=== PATIENT | female | born 1990 | race American Indian/Alaskan Native ===

== ENCOUNTER 2016-07-28 19:39 | Inpatient (IN) | payer MEDICAID ==
[2016-07-28] MEDS ORDERED: Sodium Chloride 0.9% 10 ML Syringe FLUSH PRN (19:48)
[2016-07-28] MEDS ORDERED: Sodium Chloride 0.9% 1,000 ML IV SCH ×2 (20:00→22:30)
[2016-07-28] MEDS ORDERED: LORazepam 2 MG/ML MDV ONE (20:03)
[2016-07-28] MEDS ORDERED: LORazepam 2 MG/ML MDV IVPUSH ONE (20:08)
[2016-07-28] MEDS ORDERED: Acetaminophen 325 MG Tab PO ONE (21:12)
[2016-07-28] MEDS ORDERED: HYDROmorphone 0.5 MG/0.5 ML Syringe IVPUSH ONE (22:04)
[2016-07-28] MEDS ORDERED: levETIRAcetam 500 MG in Sodium Chloride 0.9% 100 ML IV ONE (22:05)
--- NOTE | 2016-07-29 00:04 | EDM.PDOC ---
[id number] Complaint: [facility] Time Seen by Provider: 07/28/16 19:45 Source of Information: Reports: Patient, EMS Notes Reviewed, Family History Limitations: Reports: No Limitations - History of Present Illness INITIAL COMMENTS - FREE TEXT/NARRATIVE: pt had a seizure early this am and she was taken to hosp and she had a cat scan of the head that was neg. Prior to this seizure she had 2 others several mointhes ago. She talked about a headache and was found to have a fever of 38. She did not have alot of other symptoms other than the fever. She has been in the [facility] alot but there was no known tick exposure. Onset: Today Duration: Hour(s):, Other (pt had 2 seizures today. ) Location: Reports: Generalized Associated Symptoms: Reports: Fever/Chills, Headaches, Seizure, Other ( 2 seizures) denies Pain Score (Numeric/FACES): 0 - Related Data Allergies Allergy/AdvReac Type Severity Reaction Status Date / Time No Known Allergies Allergy Verified 07/28/16 19:43 Home Meds: Home Meds Amoxicillin/Potassium Clav [Augmentin 875-125 Tablet] 1 each PO BID #14 tablet 07/29/16 [Rx] levETIRAcetam [Keppra] 500 mg PO BID #60 tablet 07/29/16 [Rx] Past Medical History Neurological History: Reports: Seizure Dermatologic History: Reports: Other (See Below) Other Dermatologic History: cyst removal from breast Social & Family History - Tobacco Use Smoking Status *Q: Current Every Day Smoker Years of Tobacco use: 10 Packs/Tins Daily: 0.5 - Caffeine Use Caffeine Use: Reports: Soda - Alcohol Use Days Per Week of Alcohol Use: 2 Number of Drinks Per Day: 3 Total Drinks Per Week: 6 - Recreational Drug Use Recreational Drug Use: Yes Drug Use in Last 12 Months: Yes Recreational Drug Type: Reports: Marijuana/Hashish Recreational Drug Use Frequency: Weekly ED ROS GENERAL - Review of Systems Review Of Systems: See Below Constitutional: Reports: Fever, Chills, Malaise HEENT: Reports: No Symptoms Respiratory: Reports: No Symptoms Cardiovascular: Reports: No Symptoms Endocrine: Reports: No Symptoms GI/Abdominal: Reports: No Symptoms : Reports: No Symptoms Musculoskeletal: Reports: No Symptoms Skin: Reports: No Symptoms Neurological: Reports: Seizure Psychiatric: Reports: No Symptoms - Physical Exam Exam: See Below Text/Narrative:: Pt arrived after having a second seizure today. She had a temp of 38. She had not definite symptoms to explain the fever. Exam Limited By: Other (pt seemed very spacey when she first arrived.) General Appearance: Alert, Anxious Ears: Normal External Exam Nose: Normal Inspection Throat/Mouth: Normal Inspection Head Exam: Atraumatic Neck: Normal Inspection Respiratory/Chest: No Respiratory Distress Cardiovascular: Regular Rate, Rhythm, Tachycardia GI/Abdominal: Soft, Non-Tender (Female) Exam: Deferred Rectal (Female) Exam: Deferred Neuro Exam (Abbreviated): Alert, Inattentive, Other (pt was post ictal and seemed very spacey at first. ) Back Exam: Normal Inspection Extremities: Normal Inspection Psychiatric: Depressed Mood Course - Vital Signs Last Recorded V/S: Last Vital Signs Temp 36.9 C 07/29/16 12:01 Pulse 78 07/28/16 23:42 Resp 16 07/29/16 12:01 BP 128/87 07/29/16 12:01 Pulse Ox 97 07/29/16 12:01 - Orders/Labs/Meds Labs: Laboratory Tests 07/28/16 07/28/16 07/28/16 Range/Units 19:48 19:48 20:28 WBC 19.8 H (4.5-11.0) K/uL RBC 4.56 (3.30-5.50) M/uL Hgb 12.3 (12.0-15.0) g/dL Hct 36.6 (36.0-48.0) % MCV 80 (80-98) fL MCH 27 (27-31) pg MCHC 34 (32-36) % Plt Count 357 (150-400) K/uL Neut % (Auto) 90 H (36-66) % Lymph % (Auto) 6 L (24-44) % Blair % (Auto) 4 (2-6) % Eos % (Auto) 0 L (2-4) % Baso % (Auto) 0 (0-1) % Sodium 134 L (140-148) mmol/L Potassium 3.8 (3.6-5.2) mmol/L Chloride 100 (100-108) mmol/L Carbon Dioxide 23 (21-32) mmol/L Anion Gap 14.8 H (5.0-14.0) mmol/L BUN 8 (7-18) mg/dL Creatinine 0.8 (0.6-1.0) mg/dL Est Cr Clr Drug Dosing TNP Estimated GFR (MDRD) > 60 (>60) Glucose 121 H (74-106) mg/dL Lactic Acid (0.4-2.0) mmol/L Calcium 8.4 L (8.5-10.1) mg/dL Total Bilirubin 0.3 (0.2-1.0) mg/dL AST 19 (15-37) U/L ALT 29 (12-78) U/L Alkaline Phosphatase 73 (46-116) U/L C-Reactive Protein 0.37 H (0.0-0.3) mg/dL Total Protein 7.4 (6.4-8.2) g/dL Albumin 3.5 (3.4-5.0) g/dL Globulin 3.9 H (2.3-3.5) g/dL Albumin/Globulin Ratio 0.9 L (1.2-2.2) Urine Color Urine Appearance Urine pH (4.5-8.0) Ur Specific [place] (1.008-1.030) Urine Protein (NEGATIVE) mg/dL Urine Glucose (UA) (NEGATIVE) mg/dL Urine Ketones (NEGATIVE) mg/dL Urine Occult Blood (NEGATIVE) Urine Nitrite (NEGATIVE) Urine Bilirubin (NEGATIVE) Urine Urobilinogen (NORMAL) mg/dL Ur Leukocyte Esterase (NEGATIVE) Urine RBC (0-5) Urine WBC (0-5) Ur Epithelial Cells Amorphous Sediment Urine Bacteria Urine Mucus Urine Other Urinalysis Comment Urine HCG, Qual CSF Tube Number CSF Volume mls CSF Appearance (CLEAR) CSF Color (COLORLESS) CSF WBC (0-5) /ul CSF RBC (0-0) /ul CSF Mononuclear Cells (54-100) % CSF Polymorphonuclear (0-7) % CSF Diff Comment CSF Chloride CSF Glucose (40-70) mg/dL Urine Opiates Screen (NEGATIVE) Ur Oxycodone Screen (NEGATIVE) Urine Methadone Screen (NEGATIVE) Ur Propoxyphene Screen (NEGATIVE) Ur Barbiturates Screen (NEGATIVE) Ur Tricyclics Screen (NEGATIVE) Ur Phencyclidine Scrn (NEGATIVE) Ur Amphetamine Screen (NEGATIVE) U Methamphetamines Scrn (NEGATIVE) Urine MDMA Screen (NEGATIVE) U Benzodiazepines Scrn (NEGATIVE) U Cocaine Metab Screen (NEGATIVE) U Marijuana (THC) Screen (NEGATIVE) 07/28/16 07/28/16 07/28/16 Range/Units 20:53 21:08 21:08 WBC (4.5-11.0) K/uL RBC (3.30-5.50) M/uL Hgb (12.0-15.0) g/dL Hct (36.0-48.0) % MCV (80-98) fL MCH (27-31) pg MCHC (32-36) % Plt Count (150-400) K/uL Neut % (Auto) (36-66) % Lymph % (Auto) (24-44) % Blair % (Auto) (2-6) % Eos % (Auto) (2-4) % Baso % (Auto) (0-1) % Sodium (140-148) mmol/L Potassium (3.6-5.2) mmol/L Chloride (100-108) mmol/L Carbon Dioxide (21-32) mmol/L Anion Gap (5.0-14.0) mmol/L BUN (7-18) mg/dL Creatinine (0.6-1.0) mg/dL Est Cr Clr Drug Dosing Estimated GFR (MDRD) (>60) Glucose (74-106) mg/dL Lactic Acid 3.3 H (0.4-2.0) mmol/L Calcium (8.5-10.1) mg/dL Total Bilirubin (0.2-1.0) mg/dL AST (15-37) U/L ALT (12-78) U/L Alkaline Phosphatase (46-116) U/L C-Reactive Protein (0.0-0.3) mg/dL Total Protein (6.4-8.2) g/dL Albumin (3.4-5.0) g/dL Globulin (2.3-3.5) g/dL Albumin/Globulin Ratio (1.2-2.2) Urine Color Yellow Urine Appearance Cloudy Urine pH 6.0 (4.5-8.0) Ur Specific [place] 1.015 (1.008-1.030) Urine Protein Negative (NEGATIVE) mg/dL Urine Glucose (UA) Normal (NEGATIVE) mg/dL Urine Ketones 15 H (NEGATIVE) mg/dL Urine Occult Blood Negative (NEGATIVE) Urine Nitrite Negative (NEGATIVE) Urine Bilirubin Negative (NEGATIVE) Urine Urobilinogen Normal (NORMAL) mg/dL Ur Leukocyte Esterase Small (NEGATIVE) Urine RBC 0-5 (0-5) Urine WBC 5-10 H (0-5) Ur Epithelial Cells Few Amorphous Sediment Few Urine Bacteria Moderate Urine Mucus Few Urine Other See note Urinalysis Comment Clue cells seen Urine HCG, Qual CSF Tube Number CSF Volume mls CSF Appearance (CLEAR) CSF Color (COLORLESS) CSF WBC (0-5) /ul CSF RBC (0-0) /ul CSF Mononuclear Cells (54-100) % CSF Polymorphonuclear (0-7) % CSF Diff Comment CSF Chloride CSF Glucose (40-70) mg/dL Urine Opiates Screen Negative (NEGATIVE) Ur Oxycodone Screen Negative (NEGATIVE) Urine Methadone Screen Negative (NEGATIVE) Ur Propoxyphene Screen Negative (NEGATIVE) Ur Barbiturates Screen Negative (NEGATIVE) Ur Tricyclics Screen Negative (NEGATIVE) Ur Phencyclidine Scrn Negative (NEGATIVE) Ur Amphetamine Screen Negative (NEGATIVE) U Methamphetamines Scrn Negative (NEGATIVE) Urine MDMA Screen Negative (NEGATIVE) U Benzodiazepines Scrn Negative (NEGATIVE) U Cocaine Metab Screen Negative (NEGATIVE) U Marijuana (THC) Screen Positive H (NEGATIVE) 07/28/16 07/28/16 07/28/16 Range/Units 21:08 23:14 23:14 WBC (4.5-11.0) K/uL RBC (3.30-5.50) M/uL Hgb (12.0-15.0) g/dL Hct (36.0-48.0) % MCV (80-98) fL MCH (27-31) pg MCHC (32-36) % Plt Count (150-400) K/uL Neut % (Auto) (36-66) % Lymph % (Auto) (24-44) % Blair % (Auto) (2-6) % Eos % (Auto) (2-4) % Baso % (Auto) (0-1) % Sodium (140-148) mmol/L Potassium (3.6-5.2) mmol/L Chloride (100-108) mmol/L Carbon Dioxide (21-32) mmol/L Anion Gap (5.0-14.0) mmol/L BUN (7-18) mg/dL Creatinine (0.6-1.0) mg/dL Est Cr Clr Drug Dosing Estimated GFR (MDRD) (>60) Glucose (74-106) mg/dL Lactic Acid (0.4-2.0) mmol/L Calcium (8.5-10.1) mg/dL Total Bilirubin (0.2-1.0) mg/dL AST (15-37) U/L ALT (12-78) U/L Alkaline Phosphatase (46-116) U/L C-Reactive Protein (0.0-0.3) mg/dL Total Protein (6.4-8.2) g/dL Albumin (3.4-5.0) g/dL Globulin (2.3-3.5) g/dL Albumin/Globulin Ratio (1.2-2.2) Urine Color Urine Appearance Urine pH (4.5-8.0) Ur Specific [place] (1.008-1.030) Urine Protein (NEGATIVE) mg/dL Urine Glucose (UA) (NEGATIVE) mg/dL Urine Ketones (NEGATIVE) mg/dL Urine Occult Blood (NEGATIVE) Urine Nitrite (NEGATIVE) Urine Bilirubin (NEGATIVE) Urine Urobilinogen (NORMAL) mg/dL Ur Leukocyte Esterase (NEGATIVE) Urine RBC (0-5) Urine WBC (0-5) Ur Epithelial Cells Amorphous Sediment Urine Bacteria Urine Mucus Urine Other Urinalysis Comment Urine HCG, Qual Negative CSF Tube Number 4 CSF Volume 1 mls CSF Appearance Clear (CLEAR) CSF Color Colorless (COLORLESS) CSF WBC 0 (0-5) /ul CSF RBC 0 (0-0) /ul CSF Mononuclear Cells 0 L (54-100) % CSF Polymorphonuclear 0 (0-7) % CSF Diff Comment See note CSF Chloride Cancelled CSF Glucose 67 (40-70) mg/dL Urine Opiates Screen (NEGATIVE) Ur Oxycodone Screen (NEGATIVE) Urine Methadone Screen (NEGATIVE) Ur Propoxyphene Screen (NEGATIVE) Ur Barbiturates Screen (NEGATIVE) Ur Tricyclics Screen (NEGATIVE) Ur Phencyclidine Scrn (NEGATIVE) Ur Amphetamine Screen (NEGATIVE) U Methamphetamines Scrn (NEGATIVE) Urine MDMA Screen (NEGATIVE) U Benzodiazepines Scrn (NEGATIVE) U Cocaine Metab Screen (NEGATIVE) U Marijuana (THC) Screen (NEGATIVE) Meds: Medications Discontinued Medications Generic Name Dose Route Start Last Admin Trade Name Freq PRN Reason Stop Dose Admin Acetaminophen 650 mg 07/28/16 21:12 07/28/16 21:26 Tylenol PO 07/28/16 21:13 650 mg NOW ONE Administration Acetaminophen 650 mg 07/29/16 01:08 Tylenol PO Q4H PRN Pain/Fever Docusate Sodium 100 mg 07/29/16 00:26 Colace PO BID PRN Constipation Gadoteridol 20 ml 07/29/16 11:00 07/29/16 11:51 Prohance IV 07/29/16 11:01 20 ml . DIRECTED ERIC Administration Hydromorphone HCl 0.5 mg 07/28/16 22:04 07/28/16 22:25 Dilaudid IVPUSH 07/28/16 22:05 0.5 mg ONETIME ONE Administration Hydromorphone HCl 0.5 mg 07/29/16 11:16 07/29/16 11:22 Dilaudid IVPUSH 07/29/16 11:17 0.5 mg ONETIME ONE Administration Sodium Chloride 1,000 mls @ 500 mls/hr 07/28/16 20:00 07/28/16 20:10 Normal Saline IV 500 mls/hr ASDIRECTED ERIC Administration Levetiracetam 500 mg/ Sodium 105 mls @ 400 mls/hr 07/28/16 22:05 07/28/16 22: 25 Chloride IV 07/28/16 22:19 400 mls/hr ONETIME ONE Administration Sodium Chloride 1,000 mls @ 200 mls/hr 07/28/16 22:30 07/28/16 22:24 Normal Saline IV 200 mls/hr ASDIRECTED ERIC Administration Piperacillin Sod/Tazobactam 50 mls @ 100 mls/hr 07/29/16 00:26 07/29/16 01:42 Sod 3.375 gm/ Sodium Chloride IV 100 mls/hr Q6H ERIC Administration Sodium Chloride 1,000 mls @ 125 mls/hr 07/29/16 00:26 Normal Saline IV ASDIRECTED ERIC Sodium Chloride 1,000 mls @ 125 mls/hr 07/29/16 00:26 07/29/16 05:22 Normal Saline IV 125 mls/hr ASDIRECTED ERIC Administration Levetiracetam 500 mg/ Sodium 105 mls @ 400 mls/hr 07/29/16 10:00 07/29/16 09: 40 Chloride IV 400 mls/hr Q12H ERIC Administration Sodium Chloride Confirm 07/29/16 01:30 07/29/16 01:42 Normal Saline Administered 07/29/16 01:31 Not Given Dose 50 mls @ as directed .ROUTE .STK-MED ONE Piperacillin/Tazobactam/ 50 mls @ 100 mls/hr 07/29/16 08:00 07/29/16 08:11 Dextrose 3.375 gm/ Premix IV 100 mls/hr Q6H ERIC Administration Ibuprofen 600 mg 07/29/16 00:26 Motrin PO Q6H PRN Pain/Fever Lorazepam Confirm 07/28/16 20:03 07/28/16 20:09 Ativan Administered 07/28/16 20:04 Not Given Dose 2 mg .ROUTE .STK-MED ONE Lorazepam 0.5 mg 07/28/16 20:08 07/28/16 20:10 Ativan IVPUSH 07/28/16 20:09 0.5 mg ONETIME ONE Administration Lorazepam 1 mg 07/29/16 00:26 Ativan IV Q6H PRN Nausea/Vomiting Lorazepam 1 mg 07/29/16 00:26 07/29/16 10:50 Ativan IVPUSH 1 mg Q4H PRN Administration Agitation Ondansetron HCl 4 mg 07/29/16 00:26 Zofran IV Q4H PRN Nausea/Vomiting Ondansetron HCl 4 mg 07/29/16 00:26 07/29/16 01:21 Zofran Odt PO 07/29/16 00:27 Not Given ONETIME ONE Oxycodone HCl 5 mg 07/29/16 00:26 Oxycodone PO Q4H PRN Pain (moderate 4-6) Pantoprazole Sodium 40 mg 07/29/16 08:00 07/29/16 08:08 Protonix Iv IV 07/29/16 08:01 40 mg ONETIME ONE Administration Potassium Chloride 40 meq 07/29/16 09:00 07/29/16 09:11 Klor-Con M20 PO 07/29/16 09:01 40 meq ONETIME ONE Administration Promethazine HCl 25 mg 07/29/16 00:26 Phenergan PO Q6H PRN Nausea able to take PO Sodium Chloride 10 ml 07/28/16 19:48 Saline Flush FLUSH ASDIRECTED PRN Keep Vein Open Zolpidem Tartrate 5 mg 07/29/16 00:26 Ambien PO BEDTIME PRN Sleep - Re-Assessments/Exams Free Text/Narrative Re-Assessment/Exam: 07/29/16 00:07 pt had a cat scan of the head earlier today that was neg. Her wbc was 20,000. Her urine was questional interms of infection. Her chest xray did not show a definite infection. Her urine was cultured and she had blood cultures. Because of the seizures and the fever a spinal tap was done which did not show cells. A culture is pending on that. She was given Keppa 500mg iv. Her temp was brought down with tylenol. Departure - Departure Time of Disposition: 00:10 Disposition: Admitted As Inpatient 64 Condition: fair Clinical Impression: UTI (urinary tract infection), Fever and chills, Seizure disorder - Discharge Information
[2016-07-29] MEDS ORDERED: Docusate Sodium 100 MG Cap PO PRN (00:26)
[2016-07-29] MEDS ORDERED: Sodium Chloride 0.9% 1,000 ML IV SCH ×2 (00:26)
[2016-07-29] MEDS ORDERED: Zolpidem 5 MG Tab PO PRN (00:26)
[2016-07-29] MEDS ORDERED: oxyCODONE 5 MG Tab PO PRN (00:26)
[2016-07-29] MEDS ORDERED: LORazepam 2 MG/ML MDV IVPUSH PRN (00:26)
[2016-07-29] MEDS ORDERED: Pantoprazole 40 MG Vial IV SCH (00:26)
[2016-07-29] MEDS ORDERED: LORazepam 2 MG/ML MDV IV PRN (00:26)
[2016-07-29] MEDS ORDERED: Ondansetron 4 MG Tab.DIS PO ONE (00:26)
[2016-07-29] MEDS ORDERED: Promethazine 25 MG Tab PO PRN (00:26)
[2016-07-29] MEDS ORDERED: Piperacillin/Tazobactam 3.375 GM in Sodium Chloride 0.9% 50 ML IV SCH (00:26)
[2016-07-29] MEDS ORDERED: Ibuprofen 600 MG Tab PO PRN (00:26)
[2016-07-29] MEDS ORDERED: Ondansetron 4 MG/2 ML SDV IV PRN (00:26)
[2016-07-29] MEDS ORDERED: Acetaminophen Soln 650 MG/20.3 ML UD Cup PO PRN (01:08)
[2016-07-29] MEDS ORDERED: Sodium Chloride 0.9% 50 ML ONE (01:30)
--- NOTE | 2016-07-29 02:42 | ANES ---
DATE OF SERVICE: 07/28/2016 INDICATIONS: Martha is a 25-year-old female patient in our emergency room, was requested by Dr. Aldridge to assess her for lumbar puncture, #[id number]. Please refer to Dr. Aldridge's note for diagnosis. I reviewed her history and found no contraindications to lumbar puncture. I discussed with her the risks of the procedure and benefits as well. She was okay to proceed and consent was received. DESCRIPTION OF PROCEDURE: I had her seated at the edge of the bed. Betadine prep x3 to the lumbar region. Sterile drape was placed, 1% lidocaine skin wheal as well as deep at the L4- L5 region. Introducer needle was placed and a 25-gauge Pencan needle was placed to positive CSF results. I collected CSF in 4 different containers provided by the lumbar puncture tray, initially it was noted pink tinged bloody tinged in the first vial; second, third, and forth were all clear nice looking CSF. No cloudiness was noted at that time. I did not assess a pressure at this time due to the fact of difficulty placement and the possibility of dislodgement, although it was noted it took quite some time to retrieve CSF through the 25-gauge, so I do not believe that it was very high at this point. Upon completion, I removed the needle and removed the drape, washed her back and placed a Band-Aid over the injection site, and then placed her in a supine position. They are continuing to give IV fluids at this time. She tolerated the procedure quite well. Please refer to nurse's notes for vital signs and neuro status, which are unchanged. I reported my findings to the nurse as well as Dr. Aldridge. The patient tolerated the procedure quite well. Donn Al CRNA /[id number]
--- NOTE | 2016-07-29 07:25 | PCM.HP ---
H&P History of Present Illness - General Date of Service: 07/28/16 Admit Problem/Dx: Admission Diagnosis/Problem Admission Diagnosis/Problem Seizure Source of Information: EMS, Family History Limitations: Reports: Other (lethargic) - History of Present Illness Initial Comments - Free Text/Narative: - General Chief Complaint: Neuro Symptoms/Deficits Stated Complaint: MED [facility] Time Seen by Provider: 07/28/16 19:45 Source of Information: Reports: Patient, EMS Notes Reviewed, Family History Limitations: Reports: No Limitations - History of Present Illness: pt had a seizure early this am and she was taken to [facility] (formerly [facility] She had a cat scan of the head that was negative. Lab WBC 12,000. left AMA. While at home she had another seizure lasting about 2 minutes, confused and lethargic after seizure, family called for EMS transport. Prior to this seizure, she had 2 others several months ago. She talked about a headache and was found to have a fever of 38. She did not have other symptoms other than the fever. She has been in the [place] a lot but there was no known tick exposure. Onset: Today Duration: Hour(s):, Other (pt had 2 seizures today. ) Location: Reports: Generalized Associated Symptoms: Reports: Fever/Chills, Headaches, Seizure, Other ( 2 seizures) 07/29/16 00:[address] earlier today that was neg. labs at [facility] wbc was 20,000. Her urine was questional for infection. Her chest xray did not show a definite infection. Her urine was cultured and she had blood cultures. Because of the seizures and fever a spinal tap was done which did not showcells. A culture is pending on that. She was given Keppa 500mg iv. Her temp was brought down with tylenol. will plan to admit to ICU med-overflow for further evaluation. - Onset of Symptoms: Reports: Today, Sudden Duration of Symptoms: Reports: Hour(s): Location: Reports: Generalized Improves with: Reports: None Worsens with: Reports: None Associated Symptoms: Reports: Confusion, Seizure, Other (lethargic post seizure) - Related Data Allergies/Adverse Reactions: Allergies Allergy/AdvReac Type Severity Reaction Status Date / Time No Known Allergies Allergy Verified 07/28/16 19:43 Home Medications: Home Meds NK [No Known Home Meds] 07/28/16 [History] Past Medical History Neurological History: Reports: Seizure Dermatologic History: Reports: Other (See Below) Other Dermatologic History: cyst removal from breast Social & Family History - Family History Family Medical History: Noncontributory - Tobacco Use Smoking Status *Q: Current Every Day Smoker Years of Tobacco use: 10 Packs/Tins Daily: 0.5 - Caffeine Use Caffeine Use: Reports: Soda - Alcohol Use Days Per Week of Alcohol Use: 2 Number of Drinks Per Day: 3 Total Drinks Per Week: 6 - Recreational Drug Use Recreational Drug Use: Yes Drug Use in Last 12 Months: Yes Recreational Drug Type: Reports: Marijuana/Hashish Recreational Drug Use Frequency: Weekly - Living Situation & Occupation Living situation: Reports: Single, with Family (lives with Parents, no children. ) H&P Review of Systems - Review of Systems: Review Of Systems: Unable To Obtain (reports given by Father and Mother.) General: Reports: Fever HEENT: Reports: No Symptoms Pulmonary: Reports: No Symptoms Cardiovascular: Reports: No Symptoms Gastrointestinal: Reports: No Symptoms Genitourinary: Reports: No Symptoms Musculoskeletal: Reports: No Symptoms Skin: Reports: No Symptoms Psychiatric: Reports: No Symptoms Neurological: Reports: Seizure Hematologic/Lymphatic: Reports: No Symptoms Immunologic: Reports: No Symptoms Exam - Exam Exam: See Below - Vital Signs Vital Signs: Last Vital Signs Temp 37.6 C 07/29/16 03:14 Pulse 78 07/28/16 23:42 Resp 20 07/29/16 03:14 BP 142/65 H 07/29/16 03:14 Pulse Ox 95 07/29/16 03:14 Weight: 114.305 kg - Exam General: Sedated, Lethargic HEENT: PERRLA, Conjunctiva Clear, EACs Clear, EOMI, Hearing Intact, Mucosa Moist & Divide, Nares Patent, Normal Nasal Septum, Posterior Pharynx Clear, Pupils Equal, Pupils Reactive, TMs Clear Neck: Supple, Trachea Midline Lungs: Clear to Auscultation, Normal Respiratory Effort Cardiovascular: Regular Rate, Regular Rhythm, Normal S1, Normal S2 Abdomen: Normal Bowel Sounds, Soft (Female) Exam: Deferred Rectal (Female) Exam: Deferred Back Exam: Normal Inspection Extremities: Normal Inspection, Normal Pulses Skin: Warm, Dry, Intact Neurological: Reflexes Equal Bilateral, Strength Equal Bilateral, Normal Speech , Normal Tone Neuro Extensive - Mental Status: Inattentive Psychiatric: Other (sedated) - Patient Data Lab Results last 24 hrs: Laboratory Results - last 24 hr 07/29/16 07/29/16 07/29/16 Range/Units 03:14 05:11 05:11 WBC 14.4 H (4.5-11.0) K/uL RBC 4.31 (3.30-5.50) M/uL Hgb 11.5 L (12.0-15.0) g/dL Hct 34.8 L (36.0-48.0) % MCV 81 (80-98) fL MCH 27 (27-31) pg MCHC 33 (32-36) % Plt Count 339 (150-400) K/uL Neut % (Auto) 72 H (36-66) % Lymph % (Auto) 21 L (24-44) % [place] % (Auto) 7 H (2-6) % Eos % (Auto) 0 L (2-4) % Baso % (Auto) 0 (0-1) % Sodium 138 L (140-148) mmol/L Potassium 3.4 L (3.6-5.2) mmol/L Chloride 106 (100-108) mmol/L Carbon Dioxide 22 (21-32) mmol/L Anion Gap 13.4 (5.0-14.0) mmol/L BUN 5 L (7-18) mg/dL Creatinine 0.6 (0.6-1.0) mg/dL Est Cr Clr Drug Dosing 132.57 mL/min Estimated GFR (MDRD) > 60 (>60) Glucose 89 (74-106) mg/dL Calcium 8.1 L (8.5-10.1) mg/dL CSF Total Protein 45.7 H (15-45) mg/dL 07/29/16 Range/Units 06:31 WBC (4.5-11.0) K/uL RBC (3.30-5.50) M/uL Hgb (12.0-15.0) g/dL Hct (36.0-48.0) % MCV (80-98) fL MCH (27-31) pg MCHC (32-36) % Plt Count (150-400) K/uL Neut % (Auto) (36-66) % Lymph % (Auto) (24-44) % [place] % (Auto) (2-6) % Eos % (Auto) (2-4) % Baso % (Auto) (0-1) % Sodium (140-148) mmol/L Potassium (3.6-5.2) mmol/L Chloride 121 H (100-108) mmol/L Carbon Dioxide (21-32) mmol/L Anion Gap (5.0-14.0) mmol/L BUN (7-18) mg/dL Creatinine (0.6-1.0) mg/dL Est Cr Clr Drug Dosing mL/min Estimated GFR (MDRD) (>60) Glucose (74-106) mg/dL Calcium (8.5-10.1) mg/dL CSF Total Protein (15-45) mg/dL Result Diagrams: 07/29/16 05:11 07/29/16 06:31 *Q Meaningful Use (ADM) - VTE *Q VTE Criteria *Q: - Stroke *Q Stroke Criteria *Q: - AMI *Q AMI Criteria *Q: - Problem List (1) Seizure disorder SNOMED Code(s): 924384280 ICD Code: G40.909 - EPILEPSY, UNSP, NOT INTRACTABLE, WITHOUT STATUS EPILEPTICUS Status: Acute Priority: High Current Visit: Yes Problem List Initiated/Reviewed/Updated: Yes Orders Last 24hrs: Active Orders 24 hr Category Date Time Status Patient Status [ADT] Routine ADT 07/29/16 00:26 Active Cardiac Monitoring [RC] Q6H Care 07/29/16 00:06 Active Intake and Output [RC] QSHIFT Care 07/29/16 00:26 Active Neuro Check [RC] Q4H Care 07/29/16 01:11 Active Notify Provider Vital Signs [RC] ASDIRECTED Care 07/29/16 00:26 Active Oxygen Therapy [RC] PRN Care 07/29/16 00:26 Active VTE/DVT Education [RC] Per Unit Routine Care 07/29/16 00:26 Active Vital Signs [RC] Q4H Care 07/29/16 00:26 Active Regular Diet [DIET] Diet 07/29/16 Breakfast Active Brain w Cont [MR] Timed Exams 07/29/16 00:26 Ordered Brain wo Cont [MR] Timed Exams 07/29/16 00:26 Ordered Acetaminophen [Tylenol] Med 07/29/16 01:08 Active 650 mg PO Q4H PRN Docusate Sodium [Colace] Med 07/29/16 00:26 Active 100 mg PO BID PRN Ibuprofen [Motrin] Med 07/29/16 00:26 Active 600 mg PO Q6H PRN LORazepam [Ativan] Med 07/29/16 00:26 Active 1 mg IV Q6H PRN LORazepam [Ativan] Med 07/29/16 00:26 Active 1 mg IVPUSH Q4H PRN Ondansetron [Zofran] Med 07/29/16 00:26 Active 4 mg IV Q4H PRN Pantoprazole [ProTONIX IV] Med 07/29/16 08:00 Once 40 mg IV ONETIME ONE Piperacillin/Tazobactam/Dext [Zosyn in Dextrose Iso- Med 07/29/16 08:00 Active Osmotic 3.375 GM] 3.375 gm Premix Bag 1 bag IV Q6H Promethazine [Phenergan] Med 07/29/16 00:26 Active 25 mg PO Q6H PRN Sodium Chloride 0.9% [Normal Saline] 1,000 ml Med 07/29/16 00:26 Active IV ASDIRECTED Zolpidem [Ambien] Med 07/29/16 00:26 Active 5 mg PO BEDTIME PRN levETIRAcetam [Keppra] 500 mg Med 07/29/16 10:00 Active Sodium Chloride 0.9% [Normal Saline] 100 ml IV Q12H oxyCODONE Med 07/29/16 00:26 Active 5 mg PO Q4H PRN Seizure Precautions [OM.PC] Routine Oth 07/29/16 00:26 Ordered Sequential Compression Device [OM.PC] Per Unit Routine Oth 07/29/16 00:26 Ordered Resuscitation Status Routine Resus Stat 07/29/16 00:08 Ordered Medication Orders Acetaminophen (Tylenol) 650 mg PO Q4H PRN PRN Reason: Pain/Fever Docusate Sodium (Colace) 100 mg PO BID PRN PRN Reason: Constipation Sodium Chloride (Normal Saline) 1,000 mls @ 125 mls/hr IV ASDIRECTED [facility] Last Admin: 07/29/16 05:22 Dose: 125 mls/hr Levetiracetam 500 mg/ Sodium (Chloride) 105 mls @ 400 mls/hr IV Q12H [facility] Piperacillin/Tazobactam/ (Dextrose 3.375 gm/ Premix) 50 mls @ 100 mls/hr IV Q6H [facility] Ibuprofen (Motrin) 600 mg PO Q6H PRN PRN Reason: Pain/Fever Lorazepam (Ativan) 1 mg IV Q6H PRN PRN Reason: Nausea/Vomiting Lorazepam (Ativan) 1 mg IVPUSH Q4H PRN PRN Reason: Agitation Ondansetron HCl (Zofran) 4 mg IV Q4H PRN PRN Reason: Nausea/Vomiting Oxycodone HCl (Oxycodone) 5 mg PO Q4H PRN PRN Reason: Pain (moderate 4-6) Pantoprazole Sodium (Protonix Iv) 40 mg IV ONETIME ONE Stop: 07/29/16 08:01 Promethazine HCl (Phenergan) 25 mg PO Q6H PRN PRN Reason: Nausea able to take PO Sodium Chloride (Saline Flush) 10 ml FLUSH ASDIRECTED PRN PRN Reason: Keep Vein Open Zolpidem Tartrate (Ambien) 5 mg PO BEDTIME PRN PRN Reason: Sleep Assessment/Plan Comment:: ASSESSMENT / PLAN - History of Present Illness: pt had a seizure early this am and she was taken to [facility] (formerly [facility] She had a cat scan of the head that was negative. Lab WBC 12,000. left AMA. While at home she had another seizure lasting about 2 minutes, confused and lethargic after seizure, family called for EMS transport. Prior to this seizure, she had 2 others several months ago. She talked about a headache and was found to have a fever of 38. She did not have other symptoms other than the fever. She has been in the [place] a lot but there was no known tick exposure. Onset: Today Duration: Hour(s):, Other (pt had 2 seizures today. ) Location: Reports: Generalized Associated Symptoms: Reports: Fever/Chills, Headaches, Seizure, Other ( 2 seizures) 07/29/16 00:[address] earlier today that was neg. labs at [facility] wbc was 20,000. Her urine was questional for infection. Her chest xray did not show a definite infection. Her urine was cultured and she had blood cultures. Because of the seizures and fever a spinal tap was done which did not showcells. A culture is pending on that. She was given Keppa 500mg iv. Her temp was brought down with tylenol. will plan to admit to ICU med-overflow for further evaluation. Plan -Admit to ICU med-overflow for further monitoring -Telemetry -IV fluids for rehydration NS at 125 mL per hour -IV Keppra 500mg every 12 hours -IV Zoysn every 8 hours -seizure precaution -neuro check -Advise to notify nurses of any pain, headache or other symptoms -Order for a MRI of brain with and without contrast in a.m. -And a.m. labs: CBC, BMP Maintenance issues -Orders home meds: none -Nutrition: Regular diet -Rojas catheter not indicated at this time -DVT: scd CODE STATUS: Full Admission status: Admit to ICU Med-overflow Admission justification. This patient will be admitted for inpatient services and is medically appropriate meeting medical necessity for inpatient admission as outlined in my documentation. I reasonably expect the patient will require inpatient services that span. Time over 2 midnights. I reasonably expect this patient to be discharged or transferred within 96 hours after admission to the critical access hospital. Disposition;home Primary care provider: Norma Leggett [facility]
[2016-07-29] MEDS ORDERED: Pantoprazole 40 MG Vial IV ONE (08:00)
[2016-07-29] MEDS ORDERED: Piperacillin/Tazobactam/Dext 3.375 GM in Premix Bag 1 BAG IV SCH (08:00)
[2016-07-29] MEDS ORDERED: Potassium Chloride 20 MEQ Tab.ER PO ONE (09:00)
--- NOTE | 2016-07-29 09:12 | CR ---
Chest 1V Frontal HISTORY: seizure activity COMPARISON: None FINDINGS: Portable chest, 2022 hours. There is incomplete inspiration causing some crowding of the pulmonary markings. No acute infiltrate can be identified. Heart size is probably within normal limits for the AP technique and poor inspir ation. No vascular redistribution or pleural fluid can be seen. Bony structures and soft tissues are unremarkable. IMPRESSION: For the expiratory phase of respiration, No acute chest abnormality can be identified.
[2016-07-29] MEDS ORDERED: levETIRAcetam 500 MG in Sodium Chloride 0.9% 100 ML IV SCH (10:00)
[2016-07-29] MEDS ORDERED: Gadoteridol 279.3 MG/ML 20 ML SDV IV SCH (11:00)
[2016-07-29] MEDS ORDERED: HYDROmorphone 0.5 MG/0.5 ML Syringe IVPUSH ONE (11:16)
[2016-07-29 12:01] VITALS: BP 128/87
--- NOTE | 2016-07-29 12:11 | MR ---
Brain w wo Cont HISTORY: seizures TECHNIQUE: Multiplanar sequences of the brain were performed without and with gadolinium. There are no prior studies for comparison. FINDINGS: Midline structures appear intact. No restricted diffusion or hemosiderin deposition is seen. No acut e hemorrhage or infarct is identified. Signal characteristics of the mckeon and white matter appear within normal limits throughout the brain . No mass lesion, mass effect, midline shift, or ventricular abnormality is identified. There is no enhancing mass or other abnormal enhancement on the contrasted sequences. No abnormal extra-axial fl uid collections are seen. Visualized paranasal sinuses and mastoid air cells are clear. No obvious i ntraorbital signal abnormality or enhancement is noted. IMPRESSION: MRI brain within normal limits. No acute intracranial abnormality or abnormal enhancement is identif ied.
--- NOTE | 2016-07-29 13:09 | PCM.DCSUM1 ---
Discharge Summary - Hospital Course Brief History: Patient is a 25-year-old woman who was admitted through the emergency department following 3 seizures in the last 24 hours. - Discharge Data Discharge Date: 07/29/16 Discharge Disposition: Home, Self-Care 01 Condition: Fair - Discharge Diagnosis/Problem(s) (1) UTI (urinary tract infection) SNOMED Code(s): 35317346 ICD Code: N39.0 - URINARY TRACT INFECTION, SITE NOT SPECIFIED Status: Acute Current Visit: Yes (2) Seizure disorder SNOMED Code(s): 780706897 ICD Code: G40.909 - EPILEPSY, UNSP, NOT INTRACTABLE, WITHOUT STATUS EPILEPTICUS Status: Acute Priority: High Current Visit: Yes - Patient Summary/Data Hospital Course: Ms. Dave has had a history of seizures over the past 3-4 years. During the past 12 months has had one seizure 12 months ago, the second seizure 4-5 months ago, and 3 witnessed seizures yesterday. After each of her seizures has been seen in the emergency department but to this point has not received medical therapy or further evaluation. She was feeling well yesterday except for a toothache when she had a generalized tonic-clonic seizure in the morning that was witnessed. She was seen and evaluated in a different emergency department, CT scan of the head without contrast was unremarkable. She was discharged from that facility but then later in the day had 2 witnessed seizures and was brought into the emergency room here for further evaluation. She was noted to have temperature elevation as well as a white blood cell count of 19,000. Lactic acid was elevated in the mid [address] scan of the head was unremarkable, chest x-ray showed no significant infiltrates, urinalysis was mildly suspicious for infection. No other symptoms to explain white blood cell count or temperature elevation other than her infected tooth. For this reason lumbar puncture was performed and found to be within normal range showing no evidence of underlying infection. Prior to admission she was given 500 mg of IV Keppra in the emergency department. On admission blood cultures were obtained and she was started on empiric IV antibiotic therapy with Zosyn every 8 hours. She was started on Keppra 500 mg twice daily and given IV fluids for hydration. She had no further evidence of seizure activity or significant neurologic abnormalities during her hospital stay. MRI with and without contrast was obtained in the morning of discharge and showed no significant abnormalities. She will be discharged on antibiotic therapy with Augmentin 875 twice daily for 7 days. She will remain on Keppra 500 mg twice daily until seen for followup by neurology. She is instructed not to drive until she is been seizure-free for 3 months. Neurology consult will be scheduled with a sleep deprived EEG for further evaluation and management of her seizures. Followup appointment will be scheduled with primary care within one week. - Patient Instructions Diet: Usual Diet as Tolerated Activity: As Tolerated Driving: Do Not Drive Driving, Other: No driving until seizure free for 3 months Other/Special Instructions: Please schedule appointment in department of neurology in [place] for followup of seizure management and evaluation. Please schedule sleep deprived EEG for further evaluation of seizures. Please schedule followup appointment with Dr. Fajardo within one week. - Discharge Plan Prescriptions/Med Rec: Amoxicillin/Potassium Clav [Augmentin 875-125 Tablet] 1 each PO BID #14 tablet levETIRAcetam [Keppra] 500 mg PO BID #60 tablet Home Medications: Home Meds Amoxicillin/Potassium Clav [Augmentin 875-125 Tablet] 1 each PO BID #14 tablet 07/29/16 [Rx] levETIRAcetam [Keppra] 500 mg PO BID #60 tablet 07/29/16 [Rx] - Patient Data Vitals - Most Recent: Last Vital Signs Temp 98.4 F 07/29/16 12:01 Pulse 78 07/28/16 23:42 Resp 16 07/29/16 12:01 BP 128/87 07/29/16 12:01 Pulse Ox 97 07/29/16 12:01 Weight - Most Recent: 251 lb 15.99 oz I&O - Last 24 hours: Intake & Output 07/28/16 07/29/16 07/29/16 22:59 06:59 14:59 Intake Total 1500 Output Total 100 Balance 1400 Lab Results - Last 24 hrs: Laboratory Results - last 24 hr 07/29/16 07/29/16 07/29/16 Range/Units 03:14 05:11 05:11 WBC 14.4 H (4.5-11.0) K/uL RBC 4.31 (3.30-5.50) M/uL Hgb 11.5 L (12.0-15.0) g/dL Hct 34.8 L (36.0-48.0) % MCV 81 (80-98) fL MCH 27 (27-31) pg MCHC 33 (32-36) % Plt Count 339 (150-400) K/uL Neut % (Auto) 72 H (36-66) % Lymph % (Auto) 21 L (24-44) % [place] % (Auto) 7 H (2-6) % Eos % (Auto) 0 L (2-4) % Baso % (Auto) 0 (0-1) % Sodium 138 L (140-148) mmol/L Potassium 3.4 L (3.6-5.2) mmol/L Chloride 106 (100-108) mmol/L Carbon Dioxide 22 (21-32) mmol/L Anion Gap 13.4 (5.0-14.0) mmol/L BUN 5 L (7-18) mg/dL Creatinine 0.6 (0.6-1.0) mg/dL Est Cr Clr Drug Dosing 132.57 mL/min Estimated GFR (MDRD) > 60 (>60) Glucose 89 (74-106) mg/dL Calcium 8.1 L (8.5-10.1) mg/dL CSF Chloride (120-128) mg/DL CSF Total Protein 45.7 H (15-45) mg/dL 07/29/16 07/29/16 Range/Units 06:31 07:35 WBC (4.5-11.0) K/uL RBC (3.30-5.50) M/uL Hgb (12.0-15.0) g/dL Hct (36.0-48.0) % MCV (80-98) fL MCH (27-31) pg MCHC (32-36) % Plt Count (150-400) K/uL Neut % (Auto) (36-66) % Lymph % (Auto) (24-44) % [place] % (Auto) (2-6) % Eos % (Auto) (2-4) % Baso % (Auto) (0-1) % Sodium (140-148) mmol/L Potassium (3.6-5.2) mmol/L Chloride Cancelled (100-108) mmol/L Carbon Dioxide (21-32) mmol/L Anion Gap (5.0-14.0) mmol/L BUN (7-18) mg/dL Creatinine (0.6-1.0) mg/dL Est Cr Clr Drug Dosing mL/min Estimated GFR (MDRD) (>60) Glucose (74-106) mg/dL Calcium (8.5-10.1) mg/dL CSF Chloride 121 (120-128) mg/DL CSF Total Protein (15-45) mg/dL Med Orders - Current: Current Medications Acetaminophen (Tylenol) 650 mg PO Q4H PRN PRN Reason: Pain/Fever Docusate Sodium (Colace) 100 mg PO BID PRN PRN Reason: Constipation Levetiracetam 500 mg/ Sodium (Chloride) 105 mls @ 400 mls/hr IV Q12H [facility] Last Admin: 07/29/16 09:40 Dose: 400 mls/hr Piperacillin/Tazobactam/ (Dextrose 3.375 gm/ Premix) 50 mls @ 100 mls/hr IV Q6H [facility] Last Admin: 07/29/16 08:11 Dose: 100 mls/hr Ibuprofen (Motrin) 600 mg PO Q6H PRN PRN Reason: Pain/Fever Lorazepam (Ativan) 1 mg IV Q6H PRN PRN Reason: Nausea/Vomiting Lorazepam (Ativan) 1 mg IVPUSH Q4H PRN PRN Reason: Agitation Last Admin: 07/29/16 10:50 Dose: 1 mg Ondansetron HCl (Zofran) 4 mg IV Q4H PRN PRN Reason: Nausea/Vomiting Oxycodone HCl (Oxycodone) 5 mg PO Q4H PRN PRN Reason: Pain (moderate 4-6) Promethazine HCl (Phenergan) 25 mg PO Q6H PRN PRN Reason: Nausea able to take PO Sodium Chloride (Saline Flush) 10 ml FLUSH ASDIRECTED PRN PRN Reason: Keep Vein Open Zolpidem Tartrate (Ambien) 5 mg PO BEDTIME PRN PRN Reason: Sleep Discontinued Medications Acetaminophen (Tylenol) 650 mg PO NOW ONE Stop: 07/28/16 21:13 Last Admin: 07/28/16 21:26 Dose: 650 mg Gadoteridol (Prohance) 20 ml IV . DIRECTED [facility] Stop: 07/29/16 11:01 Last Admin: 07/29/16 11:51 Dose: 20 ml Hydromorphone HCl (Dilaudid) 0.5 mg IVPUSH ONETIME ONE Stop: 07/28/16 22:05 Last Admin: 07/28/16 22:25 Dose: 0.5 mg Hydromorphone HCl (Dilaudid) 0.5 mg IVPUSH ONETIME ONE Stop: 07/29/16 11:17 Last Admin: 07/29/16 11:22 Dose: 0.5 mg Sodium Chloride (Normal Saline) 1,000 mls @ 500 mls/hr IV ASDIRECTED [facility] Last Admin: 07/28/16 20:10 Dose: 500 mls/hr Levetiracetam 500 mg/ Sodium (Chloride) 105 mls @ 400 mls/hr IV ONETIME ONE Stop: 07/28/16 22:19 Last Admin: 07/28/16 22:25 Dose: 400 mls/hr Sodium Chloride (Normal Saline) 1,000 mls @ 200 mls/hr IV ASDIRECTED [facility] Last Admin: 07/28/16 22:24 Dose: 200 mls/hr Piperacillin Sod/Tazobactam (Sod 3.375 gm/ Sodium Chloride) 50 mls @ 100 mls/ hr IV Q6H [facility] Last Admin: 07/29/16 01:42 Dose: 100 mls/hr Sodium Chloride (Normal Saline) 1,000 mls @ 125 mls/hr IV ASDIRECTED ERIC Sodium Chloride (Normal Saline) 1,000 mls @ 125 mls/hr IV ASDIRECTED [facility] Last Admin: 07/29/16 05:22 Dose: 125 mls/hr Sodium Chloride (Normal Saline) Confirm Administered Dose 50 mls @ as directed .ROUTE .STK-MED ONE Stop: 07/29/16 01:31 Last Admin: 07/29/16 01:42 Dose: Not Given Lorazepam (Ativan) Confirm Administered Dose 2 mg .ROUTE .STK-MED ONE Stop: 07/28/16 20:04 Last Admin: 07/28/16 20:09 Dose: Not Given Lorazepam (Ativan) 0.5 mg IVPUSH ONETIME ONE Stop: 07/28/16 20:09 Last Admin: 07/28/16 20:10 Dose: 0.5 mg Ondansetron HCl (Zofran Odt) 4 mg PO ONETIME ONE Stop: 07/29/16 00:27 Last Admin: 07/29/16 01:21 Dose: Not Given Pantoprazole Sodium (Protonix Iv) 40 mg IV ONETIME ONE Stop: 07/29/16 08:01 Last Admin: 07/29/16 08:08 Dose: 40 mg Potassium Chloride (Klor-Con M20) 40 meq PO ONETIME ONE Stop: 07/29/16 09:01 Last Admin: 07/29/16 09:11 Dose: 40 meq *Q Meaningful Use (DIS) - VTE *Q VTE Criteria *Q: - Stroke *Q Stroke Criteria *Q: - AMI *Q AMI Criteria *Q:
== END 2016-07-29 13:42 | disposition home or self-care (01) | DRG 101 ==
LOC: JP.ED 19:39 → JP.ICU 23:56
PROVIDERS: ADMIT Hospitalist; ATTEND Hospitalist
PROC: 009U3ZX Drainage of Spinal Canal, Percutaneous Approach, Diagnostic (ICD-10-PCS; principal; 2016-07-28)
DX: G40.909 Epilepsy, unspecified, not intractable, without status epilepticus (principal); N39.0 Urinary tract infection, site not specified; F17.210 Nicotine dependence, cigarettes, uncomplicated
CPT/HCPCS: 36415; 51702; 70553; 70553-26; 71010; 71010-26; 80048; 80053; 80305; 81001; 81025; 82438; 82945; 83605; 84157; 85025; 86140; 86666; 86666-59; 86753; 87040; 87070; 87086; 87205; 87476; 89050; 93005; 93010; 96361; 96374; 96375; 99232; 99238; 99284; 99285-25; A9270-GY; A9576; C9113; J1170; J1953; J2060; J2543; J7030; J7040; J7050